=== PATIENT | male | born 1985 | race Caucasian/White ===

== ENCOUNTER 2019-09-08 16:46 | Emergency (ER) | payer SELFPAY ==
[~2019-09-08] VITALS: Ht 165.1 cm; Wt 68.0 kg
--- NOTE | 2019-09-08 16:50 | NUR ---
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
--- NOTE | 2019-09-08 16:55 | NUR ---
PT SEEN AND EXAMINED BY
[2019-09-08] MEDS ORDERED: OLANZAPINE 10 MG VIAL IM ONE ×2 (17:00→17:07)
[2019-09-08 17:55] VITALS: BP 136/82
--- NOTE | 2019-09-08 18:15 | NUR ---
Patient discharged to home in stable condition. Written and verbal after care instructions given. Patient verbalizes understanding of instruction.
== END 2019-09-08 18:16 | disposition home or self-care (01) ==
LOC: ER 16:48
DX: F15.10 Other stimulant abuse, uncomplicated (principal); R45.1 Restlessness and agitation; R00.0 Tachycardia, unspecified; Z60.2 Problems related to living alone
CPT/HCPCS: 96372; 99283; J3490